=== PATIENT | male | born 1980 | race Caucasian/White ===

== ENCOUNTER 2019-12-05 11:07 | Emergency (ER) | payer OTHER ==
[~2019-12-05] VITALS: Ht 180.3 cm; Wt 93.7 kg
[2019-12-05 11:25] VITALS: BP 127/86
[2019-12-05] MEDS ORDERED: LIDOcaine 1% 30ml preserv. free vial IJ ONE (11:25)
== END 2019-12-05 12:36 | disposition home or self-care (01) ==
LOC: ER 11:08
DX: S01.21XA Laceration without foreign body of nose, initial encounter (principal); W22.8XXA Striking against or struck by other objects, initial encounter; Y93.89 Activity, other specified; Y92.34 Swimming pool (public) as the place of occurrence of the external cause; Y99.1 Military activity
CPT/HCPCS: 12011; 99282